=== PATIENT | male | born 1970 | race Caucasian/White ===

== ENCOUNTER 2019-11-09 13:52 | Emergency (ER) | payer OTHER ==
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
== END 2019-11-09 15:27 | disposition home or self-care (01) ==
LOC: FB.ED 13:52
DX: S60.221A Contusion of right hand, initial encounter (principal); V89.2XXA Person injured in unspecified motor-vehicle accident, traffic, initial encounter
CPT/HCPCS: 73130-RT; 99284-25